=== PATIENT | female | born 1930 | race Caucasian/White ===

== ENCOUNTER 2019-06-07 12:09 | Inpatient (IN) | payer MEDICARE, OTHER ==
[~2019-06-07] VITALS: Ht 152.4 cm; Wt 44.9 kg
[2019-06-07] MEDS ORDERED: ASPI1CPM PO (12:31)
[2019-06-07] MEDS ORDERED: DIVALPROEX DR PO (12:31)
[2019-06-07] MEDS ORDERED: QUET25TA PO (12:31)
[2019-06-07] MEDS ORDERED: MEMA10TA PO (12:31)
[2019-06-07] MEDS ORDERED: FELO10TA3 PO (12:31)
[2019-06-07] MEDS ORDERED: ATOR10TA PO (12:31)
[2019-06-07 12:58] LABS: BASOPHILS % (AUTO) 0.6 % (0.0-2.0); EOSINOPHILS # (AUTO) 0.1 K/uL (0.0-0.7); EOSINOPHILS % (AUTO) 2.2 % (0.0-7.0); HEMATOCRIT 35.3 % (31.2-41.9); HEMOGLOBIN 11.6 g/dL (10.9-14.3); LYMPHOCYTES # (AUTO) 0.6 K/uL (20.0-40.0); LYMPHOCYTES % (AUTO) 15.8 % (20.5-51.5); MEAN CORPUSCULAR HEMOGLOBIN 33.9 uug (24.7-32.8); MEAN CORPUSCULAR HGB CONC 33 g/dL (32.3-35.6); MEAN CORPUSCULAR VOLUME 103.1 fL (75.5-95.3); MONOCYTES # (AUTO) 0.5 K/uL (2.0-10.0); MONOCYTES % (AUTO) 11.1 % (0.0-11.0); NEUTROPHILS # (AUTO) 2.9 K/uL (1.8-8.9); NEUTROPHILS % (AUTO) 70.3 % (38.5-71.5); PLATELET COUNT (AUTO) 217 K/uL (179-408); RED BLOOD CELL COUNT(AUTO) 3.42 MIL/uL (3.63-4.92); WHITE BLOOD COUNT (AUTO) 4.1 K/uL (3.8-11.8)
[2019-06-07 13:02] LABS: CARBON DIOXIDE 30 mmol/L (21-32); CHLORIDE 106 mmol/L (98-107); CREATININE 1.2 mg/dL (0.6-1.3); GLUCOSE 106 mg/dL (74-106); POTASSIUM 4.3 mmol/L (3.5-5.1); UREA NITROGEN, BLOOD 23 mg/dL (7-18)
[2019-06-07 13:08] LABS: ACETAMINOPHEN < 2.0 ug/mL (10-30); ALANINE AMINOTRANSFERASE 18 U/L (14-59); ALKALINE PHOSPHATASE 64 U/L (50-136); ASPARTATE AMINOTRANSFERASE 12 U/L (15-37); BILIRUBIN,DIRECT 0.1 mg/dL (0.0-0.2); BILIRUBIN,TOTAL 0.3 mg/dL (0.2-1.0); TOTAL PROTEIN, SERUM 6.7 g/dL (6.4-8.2)
[2019-06-07 13:09] LABS: ETHANOL < 3 MG/DL (0-0)
--- NOTE | 2019-06-07 13:12 | NUR ---
PATIENT HERE WITH HER DAUGHTER. SHE IS SITTING UP IN NO DISTRESS EATING LUNCH. JUSTIN SCOTT WAS CALLED FOR PSYCH EVAL.
--- NOTE | 2019-06-07 13:59 | NUR ---
PATIENT AMBULATED TO BATHROOM WITH STEADY GAIT. URINE SENT TO LAB
[2019-06-07 14:01] LABS: *BILIRUBIN,URIN NEGATIVE (NEGATIVE); *BLOOD, URINE NEGATIVE (NEGATIVE); *CLARITY,URINE CLEAR (CLEAR); *COLOR,URINE YELLOW (YELLOW); *KETONES,URINE NEGATIVE (NEGATIVE); *UROBILINOGEN,URINE 0.2 E.U./dl (NORMAL); LEUKOCYTE ESTERASE ,URINE NEGATIVE (NEGATIVE); NITRITE, URINE NEGATIVE (NEGATIVE); UGLUCOSE NEGATIVE (NEGATIVE)
[2019-06-07 14:15] LABS: *AMPHETAMINE, URINE NEGATIVE (NEGATIVE); *BARBITURATE, URINE NEGATIVE (NEGATIVE); *CANNABINOID, URINE NEGATIVE (NEGATIVE); *COCCAINE, URINE NEGATIVE (NEGATIVE); *OPIATE, URINE NEGATIVE (NEGATIVE); *PHENCYCLIDINE SCREEN,URINE NEGATIVE (NEGATIVE)
--- NOTE | 2019-06-07 14:22 | NUR ---
JUSTIN SCOTT, HERE TO SEE PATIENT
[2019-06-07] MEDS ORDERED: DIVALPROEX 250 MG TABLET.DR PO ONE ×2 (14:45→14:52)
[2019-06-07] MEDS ORDERED: LORAZEPAM 0.5 MG TABLET PO ONE (14:45)
[2019-06-07] MEDS ORDERED: LORAZEPAM 0.5 MG TABLET ONE (14:52)
--- NOTE | 2019-06-07 15:18 | NUR ---
REPORT GIVEN TO QUITA RN IN [facility]. PATIENT IS AWAKE AND ALERT IN NO DISTRESS.
[2019-06-07 16:16] VITALS: BP 137/75
[2019-06-07] MEDS ORDERED: MEMANTINE HCL 10 MG TABLET PO SCH (17:00)
[2019-06-07] MEDS ORDERED: MAG HYDROX/AL HYDROX/SIMETH 30 ML LIQUID UDC PO PRN (17:15)
[2019-06-07] MEDS ORDERED: MAGNESIUM HYDROXIDE 30 ML LIQUID UDC PO PRN (17:15)
[2019-06-07] MEDS ORDERED: BLOOD SUGAR DIAGNOSTIC 1 EACH STRIP VI ONE (17:15)
[2019-06-07] MEDS ORDERED: TEMAZEPAM 7.5 MG CAPSULE PO PRN (17:15)
[2019-06-07] MEDS ORDERED: ACETAMINOPHEN 325 MG TABLET PO PRN (17:15)
--- NOTE | 2019-06-07 17:41 | NUR ---
1530 Admitted patient an 88 yr. old , a female [place] national from ER per w/c , placed on 5150 for gravely disabled. Patient live at home having behavioral issue, including paranoia, verbal aggression, combativeness, non compliance with the care and cheeking her medications. Upon face to face ,observed patient confused and disoriented bu t calm. Body check done: no skin issue except some light bruising in both arms but skin intact. 1630 Dr. Urbano, psychiatrist notified with admitting orderd and also medical doctor notified to reconcile patient medications.. Anisha Wang aware of patient's admission.
[2019-06-07] MEDS: ASPIRIN/DIPYRIDAMOLE 25/200 MG CAPSULE PO SCH (20:40)
[2019-06-07] MEDS: ATORVASTATIN 10 MG TABLET PO SCH (20:40)
[2019-06-07 20:45] VITALS: BP 155/69
--- NOTE | 2019-06-07 22:10 | NUR ---
Received patient in bed, AO x 1. cooperative, med compliant, no behavioral issue at this time. Will remain in a [facility] setting for further evaluation and treatment.
[2019-06-08 07:30] VITALS: BP 158/87
[2019-06-08] MEDS: ASPIRIN/DIPYRIDAMOLE 25/200 MG CAPSULE PO SCH ×2 (09:00→20:08)
[2019-06-08] MEDS: FELODIPINE 2.5 MG TAB.SR.24H PO SCH (09:00)
[2019-06-08] MEDS: QUETIAPINE FUMARATE 25 MG TABLET PO SCH ×3 (12:13→20:08)
[2019-06-08] MEDS: DIVALPROEX SPRINKLE 125 MG CAP.SPRINK PO SCH ×2 (12:14→17:27)
--- NOTE | 2019-06-08 12:40 | NUR ---
Initial Discharge Planning: Patient currently lives at home [[address] [place] [address]] with her family - her daughter Britta Rahman [[phone]], son-in-law, and patient's son Germain. Per daughter Prabhjot Orozco[[phone]], patient will be returning home once she is ready for discharge. Platform Stapler will continue to meet with patient, and collaborate with patient, family, and MD on safe and proper discharge.
[2019-06-08 16:57] VITALS: BP 150/76
[2019-06-08] MEDS: ATORVASTATIN 10 MG TABLET PO SCH (20:08)
[2019-06-08 20:30] VITALS: BP 107/70
[2019-06-09 07:30] VITALS: BP 139/81
[2019-06-09] MEDS: FELODIPINE 2.5 MG TAB.SR.24H PO SCH (09:23)
[2019-06-09] MEDS: ASPIRIN/DIPYRIDAMOLE 25/200 MG CAPSULE PO SCH ×2 (09:24→20:21)
[2019-06-09] MEDS: DIVALPROEX SPRINKLE 125 MG CAP.SPRINK PO SCH ×3 (09:24→17:08)
[2019-06-09] MEDS: QUETIAPINE FUMARATE 25 MG TABLET PO SCH ×2 (09:25→20:21)
[2019-06-09 15:30] VITALS: BP 97/51
[2019-06-09 20:00] VITALS: BP 119/71
[2019-06-09] MEDS: ATORVASTATIN 10 MG TABLET PO SCH (20:21)
[2019-06-10 07:30] VITALS: BP 154/99
[2019-06-10] MEDS: ASPIRIN/DIPYRIDAMOLE 25/200 MG CAPSULE PO SCH ×2 (08:35→20:16)
[2019-06-10] MEDS: DIVALPROEX SPRINKLE 125 MG CAP.SPRINK PO SCH ×3 (08:35→16:18)
[2019-06-10] MEDS: AMLODIPINE 10 MG TABLET PO SCH (08:35)
[2019-06-10] MEDS: QUETIAPINE FUMARATE 25 MG TABLET PO SCH ×2 (08:36→20:19)
[2019-06-10] MEDS ORDERED: CLONIDINE HCL 0.1 MG TABLET PO PRN (12:00)
[2019-06-10 12:56] VITALS: BP 94/51
[2019-06-10] MEDS: CLONAZEPAM 0.5 MG TABLET PO PRN (13:35)
--- NOTE | 2019-06-10 13:59 | NUR ---
Gps/Neurodiagnostic Tech- Patient's daughter Erika called, wont be able to visit today, claimed she thinks patient gets more agitated and wanting to go home every time she comes to visit her . Patient continue to paced back and forth, pushing and checking doors trying to fing out how she can get out of here .Constant redirections and reorientation provided.
[2019-06-10 15:04] VITALS: BP 90/51
--- NOTE | 2019-06-10 15:37 | NUR ---
Gps/Siebel Architect- Called daughter Prabhjot to follow up vaccines , will informed Britta (another daughter) who has knowledge of her immunizations.
[2019-06-10 20:13] VITALS: BP 94/62
[2019-06-10] MEDS: ATORVASTATIN 10 MG TABLET PO SCH (20:16)
[2019-06-11 07:30] VITALS: BP 131/75
[2019-06-11] MEDS: QUETIAPINE FUMARATE 25 MG TABLET PO SCH ×3 (08:24→16:41)
[2019-06-11] MEDS: AMLODIPINE 10 MG TABLET PO SCH (08:24)
[2019-06-11] MEDS: ASPIRIN/DIPYRIDAMOLE 25/200 MG CAPSULE PO SCH ×2 (08:32→20:11)
[2019-06-11] MEDS: DIVALPROEX SPRINKLE 125 MG CAP.SPRINK PO SCH ×4 (08:32→20:11)
[2019-06-11 16:10] VITALS: BP 102/60
[2019-06-11] MEDS: ATORVASTATIN 10 MG TABLET PO SCH (20:11)
[2019-06-11 20:36] VITALS: BP 111/73
[2019-06-12 07:30] VITALS: BP 165/74
--- NOTE | 2019-06-12 08:00 | NUR ---
PT IS EATING GOOD FOR BREAKFAST.
--- NOTE | 2019-06-12 08:51 | NUR ---
FIREARMS REPORT: Live Out Nanny completed and submitted a [employer] firearms report for [address] Disability certification. A copy of report has been placed in patient chart.
[2019-06-12] MEDS: QUETIAPINE FUMARATE 25 MG TABLET PO SCH ×3 (09:27→16:48)
[2019-06-12] MEDS: DIVALPROEX SPRINKLE 125 MG CAP.SPRINK PO SCH ×3 (09:27→16:49)
[2019-06-12] MEDS: ASPIRIN/DIPYRIDAMOLE 25/200 MG CAPSULE PO SCH ×2 (09:27→20:01)
[2019-06-12] MEDS: AMLODIPINE 10 MG TABLET PO SCH (09:27)
--- NOTE | 2019-06-12 10:30 | NUR ---
PT'S DAUGHTER IN THE ROOM VISITING HER. PT IS SOMEWHAT CONFUSED BUT PLEASANT AND COMPLIANT. PT IS AMBULATORY WITHOUT ANY PROBLEM.
--- NOTE | 2019-06-12 13:53 | NUR ---
UR Note: RENETTA provided verbal clinicals to [facility] [employer] Roller Burt [[phone]]. Per Burt, patient is authorized through 06/13 with projected discharge on 06/14. Next review scheduled for 06/13.
--- NOTE | 2019-06-12 13:57 | NUR ---
Discharge planning: Stamp Presser spoke with patient's daughter Britta Rahman [[phone]] to discussed tentative discharge date 06/14. Family agreeable. Per Britta, she will be providing transportation for patient on day of dc.
[2019-06-12 15:36] VITALS: BP 120/60
[2019-06-12 20:00] VITALS: BP 111/54
[2019-06-12] MEDS: ATORVASTATIN 10 MG TABLET PO SCH (20:02)
--- NOTE | 2019-06-13 05:58 | NUR ---
Patient slept 8.5 hours. no distress, assist to bathroom as needed.
[2019-06-13 07:59] VITALS: BP 130/73
[2019-06-13] MEDS: AMLODIPINE 10 MG TABLET PO SCH (10:03)
[2019-06-13] MEDS: QUETIAPINE FUMARATE 25 MG TABLET PO SCH ×2 (10:03→17:53)
[2019-06-13] MEDS: ASPIRIN/DIPYRIDAMOLE 25/200 MG CAPSULE PO SCH ×2 (10:04→20:05)
[2019-06-13] MEDS: DIVALPROEX SPRINKLE 125 MG CAP.SPRINK PO SCH ×2 (10:04→17:53)
[2019-06-13 16:45] VITALS: BP 115/52
[2019-06-13] MEDS: CLONAZEPAM 0.5 MG TABLET PO PRN (20:05)
[2019-06-13] MEDS: ATORVASTATIN 10 MG TABLET PO SCH (20:06)
[2019-06-13 20:31] VITALS: BP 100/50
[2019-06-14 07:30] VITALS: BP 144/75
[2019-06-14] MEDS: QUETIAPINE FUMARATE 25 MG TABLET PO SCH (08:47)
[2019-06-14 08:48] VITALS: BP 144/75
[2019-06-14] MEDS: AMLODIPINE 10 MG TABLET PO SCH (08:48)
[2019-06-14] MEDS: ASPIRIN/DIPYRIDAMOLE 25/200 MG CAPSULE PO SCH (08:48)
[2019-06-14] MEDS: DIVALPROEX SPRINKLE 125 MG CAP.SPRINK PO SCH (08:48)
--- NOTE | 2019-06-14 10:08 | NUR ---
Discharge Note: Patient will be discharged into the care of her daughter Britta Rahman [[phone]] and will be going home at 1:00pm [[address] [place] [address]]. Patients daughter Prabhjot Orozco [[phone]] is also aware and agreeable with discharge plan. Patient is alert and oriented x1-2 and denies suicidal ideation. Patient will follow up with Dr. Muller on Tuesday, June 25, 2019 at 8:20am at [facility] [[address] [facility], [address], [place] [address]; ; Fx: ]. A continuing care packet has been faxed to Dr. Nguyen office. Patient was also provided with mental health resources including [facility] Crisis Line [ ] and the National Suicide Prevention Lifeline [ ].
--- NOTE | 2019-06-14 13:35 | NUR ---
Patient left the floor by wheelchair taken by Teri CARPIO outside with her daughter, prescriptions given ( Norvasc and physch meds) hard prescription given and copy of discharge given to daughter. Teaching is done and all concerns are met and discussed
--- NOTE | 2019-06-15 16:35 | NUR ---
UR Note: Email Operations Manager provided discharge verbal clinicals to [facility] [employer]elled Mining Machine Operator DONNIE [[phone]].
== END 2019-06-14 12:30 | disposition home or self-care (01) | DRG 885 ==
LOC: ER 12:09 → GPS 15:11
PROVIDERS: ADMIT Psychiatry & Neurology Psychiatry; ATTEND Nurse Practitioner Acute Care
DX: F25.9 Schizoaffective disorder, unspecified (principal); F03.91 Unspecified dementia, unspecified severity, with behavioral disturbance; E78.5 Hyperlipidemia, unspecified; Z91.14 Patient's other noncompliance with medication regimen; F60.0 Paranoid personality disorder; Z79.899 Other long term (current) drug therapy
CPT/HCPCS: 36415; 71045; 80307; 85025; 93005; A4663; G0480; G0480-TC; J3490